=== PATIENT | male | born 1975 | race Caucasian/White ===

== ENCOUNTER 2016-07-24 12:37 | Emergency (ER) | payer SELFPAY ==
[2016-07-24] MEDS ORDERED: chlordiazePOXIDE 25 MG CAP PO ONE ×2 (13:34→19:47)
--- NOTE | 2016-07-24 13:38 | EDPHY ---
H & P Stated Complaint: VERNON DOSS,From [place]-3 days-homeless Source: Patient Exam Limitations: No limitations - Personal History Current Tetanus/Diphtheria Vaccine: No Current Tetanus Diphtheria and Acellular Pertussis (TDAP): No - Medical/Surgical History Hx Asthma: No Hx Chronic Respiratory Disease: Yes Hx Diabetes: No Hx Cardiac Disease: No Hx Renal Disease: No Hx Cirrhosis: No Hx Alcoholism: Yes Hx HIV/AIDS: No Hx Splenectomy or Spleen Trauma: No Other PMH: ETOH, SZ disorder, LSD use, choleycystectomy, Bipolar, PTSD, schizoaffective, COPD. - Family History Significant Family History: No pertinent family hx - Social History Smoking Status: Heavy smoker Alcohol Use: Sober Drug Use: None Time Seen by Provider: 07/24/16 13:27 HPI/ROS: CHIEF COMPLAINT: Depression, suicidality HISTORY OF PRESENT ILLNESS: The patient is a 40-year-old man recently moved to [place] with a history of schizoaffective disorder and PTSD as well as polysubstance abuse and a seizure disorder. He states that he last drank this morning. He is worried about withdrawals. He has not yet experiencing any symptoms. He states that it has been 3 days since he took his Keppra because he cannot keep it down. He presented [facility] the [facility] who referred him here. He is admitting to suicidal ideations. He states that he has 3 times but been resuscitated. All 3 times in the past for overdoses. He denies any attempted overdose today. He states that he did take "whatever was in the medicine cabinet" last night in an attempt to hurt himself. This was not his medicine cabinet. REVIEW OF SYSTEMS: Constitutional: denies: chills, fever, recent illness, recent injury EENTM: denies: blurred vision, double vision, nose congestion Respiratory: denies: cough, shortness of breath Cardiac: denies: chest pain, irregular heart rate, lightheadedness, palpitations Gastrointestinal/Abdominal: denies: abdominal pain, diarrhea, nausea, vomiting, blood streaked stools Genitourinary: denies: dysuria, frequency, hematuria, pain Musculoskeletal: denies: joint pain, muscle pain Skin: denies: lesions, rash, jaundice, bruising Neurological: denies: headache, numbness, paresthesia, tingling, dizziness, weakness Hematologic/Lymphatic: denies: blood clots, easy bleeding, easy bruising Immunologic/allergic: denies: HIV/AIDS, transplant EXAM: GENERAL: Well-appearing, well-nourished and in no acute distress. HEAD: Atraumatic, normocephalic. EYES: Pupils equal round and reactive to light, extraocular movements intact, sclera anicteric, conjunctiva are normal. ENT: TMs normal, nares patent, oropharynx clear without exudates. Moist mucous membranes. NECK: Normal range of motion, supple without lymphadenopathy or JVD. LUNGS: Breath sounds clear to auscultation bilaterally and equal. No wheezes rales or rhonchi. HEART: Regular rate and rhythm without murmurs, rubs or gallops. ABDOMEN: Soft, nontender, normoactive bowel sounds. No guarding, no rebound. No masses appreciated. BACK: No CVA tenderness, no spinal tenderness, step-offs or deformities EXTREMITIES: Normal range of motion, no pitting or edema. No clubbing or cyanosis. NEUROLOGICAL: Cranial nerves II through XII grossly intact. Normal speech, normal gait. 5/5 strength, normal movement in all extremities, normal sensation PSYCH: Answers questions appropriately, calm, no tremors, organized thought SKIN: Warm, dry, normal turgor, no visible rashes or lesions. (Fish Enciso) Constitutional: Initial Vital Signs Temperature (C) 36.5 C 07/24/16 13:03 Heart Rate 98 07/24/16 13:03 Respiratory Rate 16 07/24/16 13:03 Blood Pressure 105/67 07/24/16 13:03 O2 Sat (%) 92 07/24/16 13:03 O2 Delivery Mode Room Air Allergies/Adverse Reactions: morphine Allergy (Intermediate, Verified 07/24/16 13:08) Rash Home Medications: Medication Instructions Recorded Keppra 07/24/16 Medical Decision Making ED Course/Re-evaluation: 2099 care assumed by me from Dr. Enciso pending mental health evaluation. [address] Miller pending the mental health evaluation. No issues during my care of this patient. (Ronan Adams) 230: I was asked to go and see this patient for nausea. He also tells me he is anxious. Patient tells me takes Keppra and has not been taking for 3 days requesting a dose of Keppra also requesting Zofran for nausea and Ativan for anxiety. I will give him 1 dose of Keppra here, Zofran and Ativan. He is on M1 hold. He is here for suicidal ideation. Received Librium earlier. (Blake Miller) 8:50 a.m. the patient has been evaluated by mental Health and felt appropriate for outpatient therapy. Patient is offered cab ride to alcohol recovery Center. He is given a list of mental health resources. (Roldan Stearns) The patient is medically cleared and admitted placed on a M1 hold. 8:00 p.m. the patient states that he is having withdrawals and vomited in the bathroom. He has no tremors or tachycardia. He is a risk of will give him more Librium. 9:00 p.m. care transferred to Dr. Cary. Patient is medically cleared we are awaiting psychiatric evaluation. (Fish Enciso) Differential Diagnosis: 0700: No acute events overnight. Patient signed over to Dr. Stearns at 7am Shift Change. Plan is for re-evaluation in the morning. (Blake Miller) Partial list of the Differential diagnosis considered include but were not limited to; substance abuse, depression, suicidality, malingering, alcohol withdrawal and although unlikely based on the history and physical exam, I also considered homicidality, schizophrenia. (Fish Enciso) - Data Points Laboratory Results: Laboratory Results 07/24/16 13:32 07/24/16 13:32 Medications Given: Discontinued Medications Chlordiazepoxide HCl (Librium) 50 mg PO EDNOW ONE Stop: 07/24/16 13:35 Last Admin: 07/24/16 13:50 Dose: 50 mg Chlordiazepoxide HCl (Librium) 50 mg PO EDNOW ONE Stop: 07/24/16 19:48 Last Admin: 07/24/16 19:52 Dose: 50 mg Sodium Chloride (Ns) 1,000 mls @ 0 mls/hr IV ONCE ONE PRN Reason: Wide Open Stop: 07/24/16 13:52 Last Admin: 07/24/16 13:51 Dose: 1,000 mls Levetiracetam (Keppra) 500 mg PO EDNOW ONE Stop: 07/24/16 22:54 Last Admin: 07/24/16 23:09 Dose: 500 mg Lorazepam (Ativan) 0.5 mg PO EDNOW ONE Stop: 07/24/16 21:35 Last Admin: 07/24/16 21:41 Dose: 0.5 mg Lorazepam (Ativan) 1 mg PO EDNOW ONE Stop: 07/24/16 22:54 Last Admin: 07/24/16 23:09 Dose: 1 mg Ondansetron HCl (Zofran Odt) 4 mg PO EDNOW ONE Stop: 07/24/16 22:54 Last Admin: 07/24/16 23:09 Dose: 4 mg Departure - Departure Disposition: Home, Routine, Self-Care Clinical Impression: Alcoholism, Suicidal ideation Alcoholic intoxication Qualifiers: Complication of substance-induced condition: with unspecified complication Qualified Code(s): F10.129 - Alcohol abuse with intoxication, unspecified Condition: Fair Instructions: Alcohol Intoxication (ED) Additional Instructions: We recommend you seek alcohol counseling and therapy. Follow up with mental health services that we have provided for you. Return for further thoughts of harming yourself or others. Referrals: NONE *PRIMARY CARE P,. [Primary Care Provider] - As per Instructions [facility] [Outside] - 1-2 days without fail
[2016-07-24 13:45] LABS: % IMMATURE GRANULYOCYTES 0.2 % (0.0-1.1); ABSOLUTE IMMATURE GRANULOCYTES 0.01 10^3/uL (0.00-0.10); ADD DIFF? NO; ADD MORPH? NO; ADD SCAN? NO; ATYPICAL LYMPHOCYTE FLAG 0 (0-99); FRAGMENT RBC FLAG 0 (0-99); HEMATOCRIT 44.8 % (40.0-51.0); HEMOGLOBIN 16.1 g/dL (13.7-17.5); LEFT SHIFT FLG 0 (0-99); LIPEMIA HEMOLYSIS FLAG 90 (0-99); MEAN CELL HEMOGLOBIN 32.7 pg (27.9-34.1); MEAN CELL HEMOGLOBIN CONCENTR. 35.9 g/dL (32.4-36.7); MEAN CELL VOLUME 91.1 fL (81.5-99.8); MEAN PLATELET VOLUME 8.7 fL (8.7-11.7); PLATELET CLUMPS FLAG 0 (0-99); PLATELET COUNT 192 10^3/uL (150-400); RED BLOOD CELL COUNT 4.92 10^6/uL (4.40-6.38); RED CELL DISTRIBUTION WIDTH 13.1 % (11.5-15.2)
[2016-07-24] MEDS ORDERED: NS 1,000 ML IV ONE (13:51)
[2016-07-24 14:18] LABS: ANION GAP 16 mEq/L (8-16); CALCIUM 8.9 mg/dL (8.5-10.4); CARBON DIOXIDE 19 mEq/l (22-31); CHLORIDE 108 mEq/L (97-110); CREATININE 1.1 mg/dL (0.7-1.3); ETHANOL SERUM 218 mg/dL (0-10); GLOMERULAR FILTRATION RATE > 60; GLUCOSE 90 mg/dL (70-100); POTASSIUM 4.2 mEq/L (3.5-5.2); SODIUM 143 mEq/L (134-144)
[2016-07-24] MEDS ORDERED: LORazepam 0.5 MG TAB PO ONE (21:34)
[2016-07-24] MEDS ORDERED: ONDANSETRON DISINTEGRATING 4 MG TAB PO ONE (22:53)
[2016-07-24] MEDS ORDERED: levETIRAcetam 500 MG TAB PO ONE (22:53)
[2016-07-24] MEDS ORDERED: LORazepam 1 MG TAB PO ONE (22:53)
[2016-07-25 09:09] VITALS: BP 122/94; PULSE 69; RESP 18; TEMP 98.1; O2SAT 95
== END 2016-07-25 09:35 | disposition home or self-care (01) ==
DX: F10.129 Alcohol abuse with intoxication, unspecified (principal); R45.851 Suicidal ideations; F17.200 Nicotine dependence, unspecified, uncomplicated; J44.9 Chronic obstructive pulmonary disease, unspecified
CPT/HCPCS: 80305; G0480

== ENCOUNTER 2016-07-28 16:05 | Emergency (ER) | payer SELFPAY ==
--- NOTE | 2016-07-28 16:03 | EDPHY ---
H & P Constitutional: Initial Vital Signs Temperature (C) 37 C 07/28/16 16:05 Heart Rate 91 07/28/16 16:05 Respiratory Rate 16 07/28/16 16:05 Blood Pressure 118/89 H 07/28/16 16:05 O2 Sat (%) 95 07/28/16 16:05 O2 Delivery Mode Room Air Allergies/Adverse Reactions: morphine Allergy (Intermediate, Verified 07/28/16 16:26) Rash Home Medications: Medication Instructions Recorded Wander 07/24/16 Medical Decision Making ED Course/Re-evaluation: CHIEF COMPLAINT: Psychiatric evaluation HISTORY OF PRESENT ILLNESS: 40-year-old male who is a mental health outpatient. They put him on a hold because they stated that he feels like he cannot contract for his safety. He is somewhat intoxicated and states to me that he is not at all suicidal not homicidal and he only wants [facility]. I am trying to reconcile the story as we speak. REVIEW OF SYSTEMS: A 10 point review of systems was performed and is negative with the exception of the elements mentioned in the history of present illness. PHYSICAL EXAM: General Appearance: Alert, well hydrated, appropriate, and non-toxic appearing. Head: Atraumatic without scalp tenderness or obvious injury Eyes: Pupils equal, round, reactive to light and accommodation, EOMI, no trauma , no injection. Ears: Clear bilaterally, no perforation, normal landmarks Nose: Atraumatic, no rhinorrhea, clear. Throat: There is no erythema or exudates, no lesions, normal tonsils, mucus membranes moist. Neck: Supple, 2+ carotid upstroke, nontender, no lymphadenopathy. Respiratory: No retractions, no distress, no wheezes, and no accessory muscle use. Lungs are clear to auscultation bilaterally. Cardiovascular: Regular rate and rhythm, no murmurs, rubs, or gallops. Bilateral carotid, radial, dorsalis pedis, and posterior tibial pulses intact. Good capillary refill all extremities. Gastrointestinal: Abdomen is soft, nontender, non-distended, no masses, no rebound, no guarding, no peritoneal signs. Musculoskeletal: Normal active ROM of all extremities, atraumatic. Neurological: Alert, appropriate, and interactive. The patient has normal DTRs and non-focal cranial nerves, motor, sensory, and cerebellar exam. Skin: No rashes, good turgor, no nodules on palpation. Past medical history: Alcohol abuse and depression Past surgical history: Noncontributory Family history: Noncontributory Social history: Abuses alcohol and tobacco, denies drug abuse, unemployed, single DIFFERENTIAL DIAGNOSIS: The differential diagnosis for the patient's depression included but was not limited to functional and major depression, situational depression, medication side effect, drugs, and alcohol abuse. MEDICAL DECISION MAKING: Patient is in no acute distress and is hemodynamically stable. This patient states very clearly to me that he has no intent on suicidality. He seems to be making perfect sense to me and I do not deem him gravely disabled. He is however on a hold. I am trying to sort out his level of intoxication, but clinically he is quite sober able to walk on his own talking making perfect sense. He has denied suicidality to me, my nurse, and Angela the psychiatric melter clerk. I am dropping the 72 hour mental health hold sending this [facility] to the [facility]. He is starting a new job on Sunday and I would like to give him opportunity to sober up and get to his job. He will be discharged the [facility] now he is clearly not suicidal and not gravely disabled In retrospect as we looked more into the 72 hour hold turns out that was placed by someone who does not have lice unsure to place the hold and is therefore not a legal hold. - Data Points Medications Given: Discontinued Medications Chlordiazepoxide (Librium 25 Mg Prepack#6) 1 btl TAKEHOME EDNOW ONE Stop: 07/28/16 16:23 Last Admin: 07/28/16 16:37 Dose: 1 btl Departure - Departure Disposition: Home, Routine, Self-Care Clinical Impression: Alcoholism, Severe major depression Condition: Good Instructions: Depression (ED), Alcohol Intoxication (ED), Alcohol Dependence ( ED) Additional Instructions: Go to [facility] now Referrals: Patient,NotPresent [Unknown] - As per Instructions
[2016-07-28] MEDS ORDERED: CHLORDIAZEPOXIDE 25MG PREPK#6 BTL TAKEHOME ONE (16:22)
[2016-07-28 16:26] VITALS: RESP 16
[2016-07-28 17:12] VITALS: BP 116/76; PULSE 72; TEMP 98.2; O2SAT 96
== END 2016-07-28 17:14 | disposition home or self-care (01) ==
LOC: EDUNIT#
DX: F32.2 Major depressive disorder, single episode, severe without psychotic features (principal); F10.20 Alcohol dependence, uncomplicated; F17.200 Nicotine dependence, unspecified, uncomplicated

== ENCOUNTER 2016-08-28 13:37 | Emergency (ER) | payer MEDICAID ==
[2016-08-28 13:46] VITALS: TEMP 98.2
--- NOTE | 2016-08-28 14:23 | CPEKG ---
Heart Rate: 64 RR Interval: 938 P-R Interval: 188 QRSD Interval: 92 QT Interval: 388 QTC Interval: 401 P Colmar: 38 QRS Colmar: 50 T Wave Colmar: 41 EKG Severity - NORMAL ECG - EKG Impression: SINUS RHYTHM Electronically Signed By: Marci Alegria 28-Aug-2016 21:44:10
--- NOTE | 2016-08-28 14:56 | EDPHY ---
H & P Time Seen by Provider: 08/28/16 14:27 HPI/ROS: CHIEF COMPLAINT: Seizure HISTORY OF PRESENT ILLNESS: Patient is a 40-year-old male with a history of schizoaffective disorder and seizure disorder presents emergency department after having multiple seizures. Patient states that he is taking THC oral to control his seizures. He did take for the last day or 2. He now had 3 seizures today. He states that when he had a seizure he fell and struck his head. He has a mild headache. He has mild nausea but no vomiting. He describes diffuse muscle aches. Patient has no recent illnesses. No fevers or chills. No cough shortness of breath. REVIEW OF SYSTEMS: My complete review of systems is negative except as mentioned in the HPI. Past Medical/Surgical History: Includes schizoaffective disorder, seizure disorder, PTSD, ETOH abuse Smoking Status: Heavy smoker Physical Exam: Vitals noted GENERAL: No acute distress, alert. HEENT: Eyes normal to inspection, normal pharynx, no signs of dehydration. No visible signs of trauma. NECK: No thyromegaly, no lymphadenopathy, supple. No spinal tenderness. Nexus negative. RESPIRATORY: Clear to auscultation bilaterally, no rales, rhonchi or wheezing. CVS: Regular rate and rhythm, no rubs, murmurs, or gallops. ABDOMEN: Soft, mild epigastric tenderness palpation with no rebound or guarding , nondistended, no organomegaly. BACK: Normal to inspection, no CVA tenderness. No spinal tenderness SKIN: Normal color, no rash, warm, dry. No pallor. Multiple tattoos. EXTREMITIES: No pedal edema, no calf tenderness, no Homans sign or cords, no joint swelling. Pelvis stable. Full range of motion of all extremities. No visible signs of trauma. NEURO/PSYCH: Higher functions: Alert and Oriented x3. Normal speech and cognition. Normal mood and affect. Cranial nerves: Normal as tested. Cerebellar: Normal as tested. Good finger to nose, good [id number], normal gait. Peripheral exam: Normal motor exam. Normal sensation. Normal reflexes. Constitutional: Initial Vital Signs Temperature (C) 36.8 C 08/28/16 13:44 Heart Rate 74 08/28/16 13:44 Respiratory Rate 16 08/28/16 13:44 Blood Pressure 117/69 08/28/16 13:44 O2 Sat (%) 96 08/28/16 13:44 O2 Delivery Mode Room Air Allergies/Adverse Reactions: morphine Allergy (Intermediate, Verified 07/28/16 16:26) Rash Home Medications: Medication Instructions Recorded Wander 07/24/16 Medical Decision Making - Diagnostics Imaging Results: Imaging Impressions Head CT 08/28/16 15:15 Impression: Normal noncontrast CT of the brain. Results called to Dr. Marci Alegria at 3:55 PM at the time of the interpretation. ED Course/Re-evaluation: In the emergency department I discussed the plan with the patient and answered all his questions. He fell and struck his head CT head was ordered. Patient was given Zofran 4 mg IV. Patient was given Toradol 30 mg IV. EKG shows normal sinus rhythm, normal rate, normal axis, normal intervals. There are no ST or T-wave abnormalities. EKG is normal as interpreted by me. Head CT: No acute disease noted. I discussed the result with the patient. We are awaiting laboratory studies. They were delayed. I discussed this with the nursing staff. I reviewed the patient's laboratory studies. They are unremarkable. His alcohol is elevated to 230. 17 12: The patient wishes to be discharged. He requests line be removed. I discussed this with the charge nurse. I went to the patient's room. He had ripped out his IV. He was angry. He walked out of the emergency department. Differential Diagnosis: My differential includes but is not limited to seizure that - Data Points Laboratory Results: Laboratory Results 08/28/16 16:27 08/28/16 16:27 08/28/16 08/28/16 08/28/16 16:27 16:27 16:27 WBC 5.68 10^3/uL 10^3/uL (3.80-9.50) RBC 4.48 10^6/uL 10^6/uL (4.40-6.38) Hgb 15.0 g/dL g/dL (13.7-17.5) Hct 42.4 % % (40.0-51.0) MCV 94.6 fL fL (81.5-99.8) MCH 33.5 pg pg (27.9-34.1) MCHC 35.4 g/dL g/dL (32.4-36.7) RDW 12.8 % % (11.5-15.2) Plt Count 183 10^3/uL 10^3/uL (150-400) MPV 8.9 fL fL (8.7-11.7) Neut % (Auto) 46.8 % % (39.3-74.2) Lymph % (Auto) 44.5 % % (15.0-45.0) [place] % (Auto) 6.9 % % (4.5-13.0) Eos % (Auto) 1.1 % % (0.6-7.6) Baso % (Auto) 0.5 % % (0.3-1.7) Nucleat RBC Rel Count 0.0 % % (0.0-0.2) Absolute Neuts (auto) 2.66 10^3/uL 10^3/uL (1.70-6.50) Absolute Lymphs (auto) 2.53 10^3/uL 10^3/uL (1.00-3.00) Absolute Monos (auto) 0.39 10^3/uL 10^3/uL (0.30-0.80) Absolute Eos (auto) 0.06 10^3/uL 10^3/uL (0.03-0.40) Absolute Basos (auto) 0.03 10^3/uL 10^3/uL (0.02-0.10) Absolute Nucleated RBC 0.00 10^3/uL 10^3/uL (0-0.01) Immature Gran % 0.2 % % (0.0-1.1) Immature Gran # 0.01 10^3/uL 10^3/uL (0.00-0.10) PT 15.2 SEC H SEC (12.0-15.0) INR 1.20 H (0.83-1.16) APTT 28.6 SEC SEC (23.0-38.0) Sodium 145 mEq/L H mEq/L (134-144) Potassium 3.9 mEq/L mEq/L (3.5-5.2) Chloride 109 mEq/L mEq/L (97-110) Carbon Dioxide 27 mEq/l mEq/l (22-31) Anion Gap 9 mEq/L mEq/L (8-16) BUN 8 mg/dL mg/dL (7-23) Creatinine 1.0 mg/dL mg/dL (0.7-1.3) Estimated GFR > 60 Glucose 95 mg/dL mg/dL (70-100) Calcium 8.1 mg/dL L mg/dL (8.5-10.4) Ethyl Alcohol 230 mg/dL H mg/dL (0-10) Medications Given: Discontinued Medications Sodium Chloride (Ns) 1,000 mls @ 0 mls/hr IV ONCE ONE PRN Reason: Wide Open Stop: 08/28/16 15:16 Last Admin: 08/28/16 15:21 Dose: 1,000 mls Ketorolac Tromethamine (Toradol) 30 mg IVP EDNOW ONE Stop: 08/28/16 15:41 Last Admin: 08/28/16 15:40 Dose: 30 mg Ondansetron HCl (Zofran) 4 mg IVP EDNOW ONE Stop: 08/28/16 15:16 Last Admin: 08/28/16 15:21 Dose: 4 mg Departure - Departure Disposition: Home, Routine, Self-Care Clinical Impression: Seizure Headache Qualifiers: Headache type: unspecified Headache chronicity pattern: acute headache Intractability: not intractable Qualified Code(s): R51 - Headache Condition: Good Additional Instructions: Patient left without discharge instructions. Referrals: Patient,NotPresent [Primary Care Provider] - As per Instructions
[2016-08-28] MEDS ORDERED: NS 1,000 ML IV ONE (15:15)
[2016-08-28] MEDS ORDERED: ONDANSETRON 4 MG/2 ML VIAL IVP ONE (15:15)
[2016-08-28] MEDS ORDERED: KETOROLAC 30 MG/1 ML SDV ONE (15:29)
[2016-08-28] MEDS ORDERED: KETOROLAC 30 MG/1 ML SDV IVP ONE (15:40)
[2016-08-28 16:39] LABS: % IMMATURE GRANULYOCYTES 0.2 % (0.0-1.1); ABSOLUTE IMMATURE GRANULOCYTES 0.01 10^3/uL (0.00-0.10); ADD DIFF? NO; ADD MORPH? NO; ADD SCAN? NO; ATYPICAL LYMPHOCYTE FLAG 20 (0-99); FRAGMENT RBC FLAG 0 (0-99); HEMATOCRIT 42.4 % (40.0-51.0); LEFT SHIFT FLG 0 (0-99); LIPEMIA HEMOLYSIS FLAG 90 (0-99); MEAN CELL HEMOGLOBIN 33.5 pg (27.9-34.1); MEAN CELL HEMOGLOBIN CONCENTR. 35.4 g/dL (32.4-36.7); MEAN CELL VOLUME 94.6 fL (81.5-99.8); MEAN PLATELET VOLUME 8.9 fL (8.7-11.7); PLATELET CLUMPS FLAG 0 (0-99); PLATELET COUNT 183 10^3/uL (150-400); RED BLOOD CELL COUNT 4.48 10^6/uL (4.40-6.38); RED CELL DISTRIBUTION WIDTH 12.8 % (11.5-15.2)
[2016-08-28 16:45] LABS: APTT 28.6 SEC (23.0-38.0); INR 1.2 (0.83-1.16); PROTIME(PATIENT) 15.2 SEC (12.0-15.0)
[2016-08-28 16:52] VITALS: O2SAT 93
[2016-08-28 16:57] VITALS: BP 107/72; PULSE 81; RESP 16
[2016-08-28 16:58] LABS: ANION GAP 9 mEq/L (8-16); CALCIUM 8.1 mg/dL (8.5-10.4); CARBON DIOXIDE 27 mEq/l (22-31); CHLORIDE 109 mEq/L (97-110); ETHANOL SERUM 230 mg/dL (0-10); GLOMERULAR FILTRATION RATE > 60; GLUCOSE 95 mg/dL (70-100); POTASSIUM 3.9 mEq/L (3.5-5.2); SODIUM 145 mEq/L (134-144)
== END 2016-08-28 17:14 | disposition left against medical advice (07) ==
LOC: EDUNIT#
DX: G40.909 Epilepsy, unspecified, not intractable, without status epilepticus (principal); F17.200 Nicotine dependence, unspecified, uncomplicated
CPT/HCPCS: 96374; G0480; J1885; J2405

== ENCOUNTER 2016-08-30 18:57 | Emergency (ER) | payer MEDICAID ==
--- NOTE | 2016-08-30 19:29 | EDPHY ---
H & P Smoking Status: Heavy smoker Time Seen by Provider: 08/30/16 19:08 HPI/ROS: CHIEF COMPLAINT: Possible seizure, alcohol intoxication HISTORY OF PRESENT ILLNESS: 40-year-old male with a history of schizoaffective disorder and possible seizure disorder presents to the emergency department by ambulance after he was found down. Patient admits to drinking alcohol today. He does not think that he hit his head. He has no complaints. He denies chest pain or difficulty breathing. Denies abdominal pain. Denies vomiting or diarrhea. No fever. The patient has been seen 4 times in the last 3 weeks after having possible seizure versus pseudoseizures. REVIEW OF SYSTEMS: Constitutional: No fever, no chills. Eyes: No double or blurry vision. ENT: No sore throat. Respiratory: No cough, no shortness of breath. Cardiac: No chest pain. Gastrointestinal: No abdominal pain, vomiting or diarrhea. Genitourinary: No dysuria. Musculoskeletal: No neck or back pain. Skin: No rashes. Neurological: No headache. (Venus Beckford) Past Medical/Surgical History: Schizoaffective disorder, seizure disorder, alcoholism (Venus Beckford) Social History: From [place] (Venus Beckford) Physical Exam: General Appearance: Lethargic. He smells of alcohol. No visible signs of trauma to his head. Eyes: Pupils equal and round. Extraocular motions are all intact. ENT: Mouth: Mucous membranes moist. Respiratory: No wheezing, rhonchi, or rales, lungs are clear to auscultation. Cardiovascular: Regular rate and rhythm. Gastrointestinal: Abdomen is soft and nontender, no masses, no rebound or guarding, bowel sounds normal. Neurological: Uncooperative, cannot determine. Skin: Warm and dry, no rashes. Musculoskeletal: Nontender to palpate along the cervical, thoracic or lumbar spine. Neck is supple. Extremities: Full range of motion and no peripheral edema. Psychiatric: No agitation (Venus Beckford) Constitutional: Initial Vital Signs Heart Rate 70 08/30/16 19:08 Respiratory Rate 18 08/30/16 19:08 Blood Pressure 117/84 H 08/30/16 19:08 O2 Sat (%) 94 08/30/16 19:08 O2 Delivery Mode Room Air Allergies/Adverse Reactions: morphine Allergy (Mild, Verified 08/31/16 11:38) Rash Home Medications: Medication Instructions Recorded Keppra 07/24/16 levETIRAcetam [Keppra 500 mg (*)] 500 mg PO BID #14 tab 08/31/16 Medical Decision Making ED Course/Re-evaluation: 40-year-old male presents to the emergency department with altered mental status. He has no physical signs of trauma to his head. He just had a CT scan of his brain 2 days ago which was normal. Laboratory studies are within normal limits with the exception of his alcohol being 347. The patient is welcome at the [facility] and will be discharged there when he is able to ambulate unassisted. (Venus Beckford) I did not see this patient while he was in the emergency department. However his care was discussed with the PA while the patient was in the department. I agree with treatment plan and management (Roldan Stearns) Differential Diagnosis: Altered mental status including but not limited to hypoglycemia, infectious process, electrolyte abnormality, head injury and intoxicants. (Venus Beckford) - Data Points Laboratory Results: Laboratory Results 08/30/16 19:29 Medications Given: Discontinued Medications Chlordiazepoxide (Librium 25 Mg Prepack#6) 1 btl TAKEHOME EDNOW ONE Stop: 08/31/16 01:57 Last Admin: 08/31/16 03:12 Dose: Not Given Ondansetron HCl (Zofran Odt) 4 mg PO EDNOW ONE Stop: 08/31/16 02:07 Last Admin: 08/31/16 02:07 Dose: 4 mg Departure - Departure Disposition: Home, Routine, Self-Care Clinical Impression: Alcohol intoxication Qualifiers: Complication of substance-induced condition: uncomplicated Qualified Code(s): F10.120 - Alcohol abuse with intoxication, uncomplicated Condition: Good Instructions: Chlordiazepoxide/Clidinium (By mouth), Alcohol Intoxication (ED) , Abuse of Alcohol (ED) Additional Instructions: You should not drink alcohol in excess. Referrals: [facility] [Outside] - As per Instructions
[2016-08-30 21:15] LABS: ANION GAP 15 mEq/L (8-16); CALCIUM 8.4 mg/dL (8.5-10.4); CARBON DIOXIDE 23 mEq/l (22-31); CHLORIDE 108 mEq/L (97-110); CREATININE 1.1 mg/dL (0.7-1.3); GLOMERULAR FILTRATION RATE > 60; GLUCOSE 93 mg/dL (70-100); POTASSIUM 5.2 mEq/L (3.5-5.2); SODIUM 146 mEq/L (134-144); SPECIMEN HEMOLYSIS 126
[2016-08-30 21:28] LABS: ETHANOL SERUM 347 mg/dL (0-10)
[2016-08-30 22:14] VITALS: RESP 16
[2016-08-31] MEDS ORDERED: ONDANSETRON DISINTEGRATING 4 MG TAB ONE (02:03)
[2016-08-31] MEDS ORDERED: ONDANSETRON DISINTEGRATING 4 MG TAB PO ONE (02:06)
[2016-08-31] MEDS: CHLORDIAZEPOXIDE 25MG PREPK#6 BTL TAKEHOME ONE ×2 (02:09→03:12)
[2016-08-31 03:07] VITALS: BP 123/81; PULSE 88; TEMP 98.2; O2SAT 94
== END 2016-08-31 03:07 | disposition home or self-care (01) ==
LOC: EDUNIT#
DX: F10.120 Alcohol abuse with intoxication, uncomplicated (principal); F17.200 Nicotine dependence, unspecified, uncomplicated
CPT/HCPCS: G0480

== ENCOUNTER 2016-08-31 11:37 | Emergency (ER) | payer MEDICAID ==
--- NOTE | 2016-08-31 12:21 | EDPHY ---
H & P Time Seen by Provider: 08/31/16 12:16 HPI/ROS: CHIEF COMPLAINT: [facility] requesting medication HISTORY OF PRESENT ILLNESS: 40-year-old male history of seizure disorder, homelessness, alcoholism, seen in the emergency department last evening and sent to the [facility] for [facility], [facility] was that he may get a prescription for Librium and for his Keppra 500 mg twice dailyso that he may enter their detoxification program. He has no complaints of acute pain or discomfort. Denies suicidal homicidal ideation. Denies hallucination. PHYSICAL EXAM (Prior to examination, patient consented to physical exam, hands were washed and my usual and customary physical exam procedures followed) 1) GENERAL: Well-developed, well-nourished, alert and oriented. Appears to be in no acute distress. 2) HEAD: Normocephalic 3) HEENT: sclera anicteric 4) LUNGS: Breathing comfortably. [5) psychiatric: Answering questions appropriately. Smoking Status: Heavy smoker Constitutional: Initial Vital Signs Temperature (C) 36.4 C 08/31/16 11:39 Heart Rate 92 08/31/16 11:39 Respiratory Rate 18 08/31/16 11:39 Blood Pressure 141/94 H 08/31/16 11:39 O2 Sat (%) 94 08/31/16 11:39 O2 Delivery Mode Room Air Allergies/Adverse Reactions: morphine Allergy (Mild, Verified 08/31/16 11:38) Rash Home Medications: Medication Instructions Recorded ppra 07/24/16 levETIRAcetam [Keppra 500 mg (*)] 500 mg PO BID #14 tab 08/31/16 MDM/Departure - MDM Medications Given: Discontinued Medications Chlordiazepoxide (Librium 25 Mg Prepack#6) 1 btl TAKEHOME EDNOW ONE Stop: 08/31/16 13:09 Last Admin: 08/31/16 13:11 Dose: 1 btl Levetiracetam (Keppra) 500 mg PO EDNOW ONE Stop: 08/31/16 13:10 Last Admin: 08/31/16 13:17 Dose: 500 mg ED Course/Re-evaluation: He is not altered. Doubt delirium tremens. Doubt encephalopathy. He has been given a prepack of Librium and a 7 day supply of Keppra. [facility]ills. - Depart Disposition: Home, Routine, Self-Care Clinical Impression: History of seizure Alcohol withdrawal Qualifiers: Complication of substance-induced condition: uncomplicated Qualified Code(s): F10.230 - Alcohol dependence with withdrawal, uncomplicated Condition: Good Instructions: Alcohol Withdrawal (ED) Prescriptions: levETIRAcetam [Keppra 500 mg (*)] 500 mg PO BID #14 tab Referrals: [facility] [Outside] - 1 day without fail [facility],. [Clinic] - 2-3 days, call for appt.
[2016-08-31] MEDS ORDERED: CHLORDIAZEPOXIDE 25MG PREPK#6 BTL TAKEHOME ONE ×2 (12:58→13:08)
[2016-08-31] MEDS ORDERED: levETIRAcetam 500 MG TAB ONE ×2 (12:58→12:59)
[2016-08-31] MEDS ORDERED: levETIRAcetam 500 MG TAB PO ONE (13:09)
[2016-08-31 13:19] VITALS: BP 178/90; PULSE 101; RESP 19; TEMP 98.6; O2SAT 91
== END 2016-08-31 13:19 | disposition home or self-care (01) ==
DX: G40.909 Epilepsy, unspecified, not intractable, without status epilepticus (principal); F10.230 Alcohol dependence with withdrawal, uncomplicated; F17.200 Nicotine dependence, unspecified, uncomplicated

== ENCOUNTER 2016-09-04 00:01 | Emergency (ER) | payer MEDICAID ==
[2016-09-04 00:38] VITALS: RESP 16
[2016-09-04] MEDS ORDERED: levETIRAcetam 500 MG TAB PO ONE (00:46)
[2016-09-04] MEDS ORDERED: chlordiazePOXIDE 25 MG CAP PO ONE (00:46)
[2016-09-04] MEDS ORDERED: ONDANSETRON DISINTEGRATING 4 MG TAB PO ONE (00:46)
[2016-09-04 00:51] LABS: % IMMATURE GRANULYOCYTES 0.6 % (0.0-1.1); ABSOLUTE IMMATURE GRANULOCYTES 0.03 10^3/uL (0.00-0.10); ADD DIFF? NO; ADD MORPH? NO; ADD SCAN? NO; ATYPICAL LYMPHOCYTE FLAG 0 (0-99); FRAGMENT RBC FLAG 0 (0-99); HEMATOCRIT 45.9 % (40.0-51.0); HEMOGLOBIN 16.5 g/dL (13.7-17.5); LEFT SHIFT FLG 0 (0-99); LIPEMIA HEMOLYSIS FLAG 90 (0-99); MEAN CELL HEMOGLOBIN 33.1 pg (27.9-34.1); MEAN CELL HEMOGLOBIN CONCENTR. 35.9 g/dL (32.4-36.7); MEAN CELL VOLUME 92.2 fL (81.5-99.8); MEAN PLATELET VOLUME 9.4 fL (8.7-11.7); PLATELET CLUMPS FLAG 30 (0-99); PLATELET COUNT 165 10^3/uL (150-400); RED BLOOD CELL COUNT 4.98 10^6/uL (4.40-6.38); RED CELL DISTRIBUTION WIDTH 12.1 % (11.5-15.2)
[2016-09-04 00:55] LABS: ANION GAP 11 mEq/L (8-16); CALCIUM 8.5 mg/dL (8.5-10.4); CARBON DIOXIDE 26 mEq/l (22-31); CHLORIDE 104 mEq/L (97-110); CREATININE 0.9 mg/dL (0.7-1.3); GLOMERULAR FILTRATION RATE > 60; GLUCOSE 93 mg/dL (70-100); POTASSIUM 4.8 mEq/L (3.5-5.2); SODIUM 141 mEq/L (134-144)
[2016-09-04 01:11] LABS: ETHANOL SERUM 322 mg/dL (0-10)
--- NOTE | 2016-09-04 01:40 | EDPHY ---
H & P Stated Complaint: M1, SI Source: Patient, EMS - Personal History Current Tetanus/Diphtheria Vaccine: Unsure Current Tetanus Diphtheria and Acellular Pertussis (TDAP): Unsure - Medical/Surgical History Hx Asthma: No Hx Chronic Respiratory Disease: Yes Hx Diabetes: No Hx Cardiac Disease: No Hx Renal Disease: No Hx Cirrhosis: No Hx Alcoholism: Yes Hx HIV/AIDS: No Hx Splenectomy or Spleen Trauma: No Other PMH: ETOH, SZ disorder, LSD use, choleycystectomy, Bipolar, PTSD, schizoaffective, COPD. - Social History Smoking Status: Heavy smoker Time Seen by Provider: 09/04/16 00:30 HPI/ROS: HPI The patient presents with suicidal ideation, placed on an M1 hold by police [place]. Patient says he has a plan to jump in front of cars. He says he has been feeling suicidal for the last few days though he became worse today. Has been on a drinking binge, drinking heavily lately and he thinks this is what has caused his symptoms. He also has been using LSD and mushrooms, last use yesterday. He feels dismal about his current situation. He has had suicidal ideations before and was last hospitalized about 1 year ago. He is not on any psychiatric medications.. REVIEW OF SYSTEMS Constitutional: No fever, no chills. Eyes: No discharge. ENT: No sore throat. Cardiovascular: No chest pain, no palpitations. Respiratory: No cough, no shortness of breath. Gastrointestinal: No abdominal pain, no vomiting. Genitourinary: No hematuria. Musculoskeletal: No back pain. Skin: No rashes. Neurological: No headache. PMHx: Seizure disorder, supposed to be on Keppra though states he is not taking it; bipolar disorder, schizoaffective disorder, PTSD per old records Soc Hx: Alcohol abuse, drug use, homeless PHYSICAL General Appearance: Alert, no distress Eyes: Pupils equal and round no pallor or injection ENT, Mouth: Mucous membranes moist Respiratory: There are no retractions, lungs are clear to auscultation Cardiovascular: Regular rate and rhythm Gastrointestinal: Abdomen is soft and non-tender, no masses, bowel sounds normal Neurological: A&O, moves all extremities Skin: Warm and dry, no rashes Musculoskeletal: Neck is supple non tender Extremities: symmetrical, full range of motion Psychiatric: Patient is oriented X 3, there is no agitation (Riguzzi,Dayan) Constitutional: Initial Vital Signs Temperature (C) 36.6 C 09/04/16 00:02 Heart Rate 82 09/04/16 00:02 Respiratory Rate 16 09/04/16 00:02 Blood Pressure 132/81 H 09/04/16 00:02 O2 Sat (%) 97 09/04/16 00:02 O2 Delivery Mode Room Air Allergies/Adverse Reactions: morphine Allergy (Mild, Verified 09/04/16 00:13) Rash haloperidol [From Haldol] Allergy (Verified 09/05/16 22:28) Home Medications: Medication Instructions Recorded levETIRAcetam [Keppra 500 mg (*)] 500 mg PO BID #14 tab 08/31/16 Medical Decision Making ED Course/Re-evaluation: 4:15 a.m.- Patient has been stable throughout his time in the emergency room. He has not exhibited any overt signs of alcohol withdrawal. He is feeling well. Labs have returned and do show that he has an elevated alcohol level and urine toxicology is positive for benzodiazepines and marijuana. Once he is more sober , he will be suitable for mental health evaluation. We will have to monitor him for alcohol withdrawals. 7:00 a.m.- Patient continues to be stable. He is awaiting mental health evaluation pending his sobriety. He will be signed out to the oncoming provider Dr. Adams. ( Dayan Clarke) 0700 care assumed by me from Dr. Clarke pending sobriety and mental health evaluation. [address] Sheppard pending MH evaluation. (Ronan Adams) Differential Diagnosis: This is a 40-year-old man with psychiatric disease including bipolar disorder and schizoaffective, also heavy alcohol use and recent hallucinogen use, homelessness presents brought in by ambulance placed on an M1 hold for suicidal ideation with plan to jump into traffic. Here, he is intoxicated, continually suicidal, without any other complaints. He is requesting Librium because he feels he is experiencing some alcohol withdrawals, though is not tachycardic or tremulous. I will give this to him as well as his usual Keppra which she has not been taking. Differential diagnosis includes bipolar disorder with suicidal ideation alcohol intoxication, alcohol withdrawal, polysubstance abuse. (Dayan Clarke) Other Provider: I assumed care of the patient at 3:00 p.m. pending psychiatric evaluation and placement. Update at 5:30 p.m.: I am informed by the psychiatric parts cataloguer that they would like to admit the patient to a CSU. Placement currently pending. The patient will be turned over to Dr. Enciso at 11pm. (Jose Manuel Sheppard) Patient's care transferred to md at 11:00 p.m.. The patient has asked for medication to help him sleep. He has received multiple doses of Ativan. We will try Ambien. He has been medically cleared and we are awaiting psychiatric placement. Patient is slept overnight without significant incident. Care transferred at shift change to Dr. Oj Maya. (Fish Enciso) Care the patient is assumed at 7:[address] Enciso with placement pending. Signed out to Fausto at 1500 with placement still pending. (Oj Maya) I assumed care of this patient at 3:[address] Maya. At 3:30 p.m., I was notified that her [facility] we continued to be looking for placement at a CSU. Patient asked for Librium to treat his alcohol withdrawal as well as Zofran for nausea and Motrin for headache. This was given. Jovon from [facility] discussed the patient with me at 6:10 p.m.. Evidently the patient has been declined as an admission at a CSU secondary to the fact that when he presented his alcohol level was 322. At this time she is recommending inpatient treatment. Patient received Ativan at 7:30 p.m. secondary to anxiety. We continue to await placement. Patient was accepted by Dr. Campbell at [facility]. Transfer paperwork was signed by myself at 1025pm (Reina Lambert) - Data Points Laboratory Results: Laboratory Results 09/04/16 00:35 09/04/16 00:35 Medications Given: Discontinued Medications Acetaminophen (Tylenol) 1,000 mg PO EDNOW ONE Stop: 09/04/16 15:06 Last Admin: 09/04/16 15:07 Dose: 1,000 mg Chlordiazepoxide HCl (Librium) 25 mg PO EDNOW ONE Stop: 09/04/16 00:47 Last Admin: 09/04/16 00:57 Dose: 25 mg Chlordiazepoxide HCl (Librium) 25 mg PO EDNOW ONE Stop: 09/05/16 07:43 Last Admin: 09/05/16 07:48 Dose: 25 mg Chlordiazepoxide HCl (Librium) 25 mg PO EDNOW ONE Stop: 09/05/16 16:49 Last Admin: 09/05/16 17:17 Dose: 25 mg Chlordiazepoxide HCl (Librium) 25 mg PO EDNOW ONE Stop: 09/05/16 22:17 Last Admin: 09/05/16 22:17 Dose: 25 mg Ibuprofen (Motrin) 600 mg PO EDNOW ONE Stop: 09/05/16 16:50 Last Admin: 09/05/16 17:18 Dose: 600 mg Levetiracetam (Keppra) 500 mg PO EDNOW ONE Stop: 09/04/16 00:47 Last Admin: 09/04/16 00:57 Dose: 500 mg Levetiracetam (Keppra) 500 mg PO BID ARAMIS Stop: 03/03/17 17:26 Last Admin: 09/05/16 21:05 Dose: 500 mg Lorazepam (Ativan) 1 mg PO EDNOW ONE Stop: 09/04/16 12:38 Last Admin: 09/04/16 12:39 Dose: 1 mg Lorazepam (Ativan Injection) 1 mg IVP EDNOW ONE Stop: 09/04/16 13:04 Last Admin: 09/04/16 13:06 Dose: 1 mg Lorazepam (Ativan Injection) 1 mg IVP EDNOW ONE Stop: 09/04/16 15:06 Last Admin: 09/04/16 15:07 Dose: 1 mg Lorazepam (Ativan Injection) 1 mg IVP EDNOW ONE Stop: 09/04/16 17:27 Last Admin: 09/04/16 17:28 Dose: 1 mg Lorazepam (Ativan) 1 mg PO EDNOW ONE Stop: 09/04/16 20:00 Last Admin: 09/04/16 20:00 Dose: 1 mg Lorazepam (Ativan) 1 mg PO EDNOW ONE Stop: 09/04/16 21:59 Last Admin: 09/04/16 22:05 Dose: 1 mg Lorazepam (Ativan) 1 mg PO EDNOW ONE Stop: 09/05/16 19:36 Last Admin: 09/05/16 19:54 Dose: 1 mg Nicotine Polacrilex (Nicorette) 2 mg B ONCE ONE Stop: 09/04/16 22:03 Last Admin: 09/04/16 22:05 Dose: 2 mg Nicotine Polacrilex (Nicorette) 2 mg B PRN PRN PRN Reason: Nicotine Withdrawal Stop: 03/04/17 19:41 Last Admin: 09/05/16 19:45 Dose: 2 mg Ondansetron HCl (Zofran Odt) 4 mg PO EDNOW ONE Stop: 09/04/16 00:47 Last Admin: 09/04/16 00:57 Dose: 4 mg Ondansetron HCl (Zofran) 4 mg IVP EDNOW ONE Stop: 09/04/16 13:04 Last Admin: 09/04/16 13:06 Dose: 4 mg Ondansetron HCl (Zofran) 4 mg IVP EDNOW ONE Stop: 09/04/16 17:27 Last Admin: 09/04/16 17:28 Dose: 4 mg Ondansetron HCl (Zofran Odt) 4 mg PO EDNOW ONE Stop: 09/05/16 07:43 Last Admin: 09/05/16 07:48 Dose: 4 mg Ondansetron HCl (Zofran Odt) 4 mg PO EDNOW ONE Stop: 09/05/16 16:50 Last Admin: 09/05/16 17:18 Dose: 4 mg Zolpidem Tartrate (Ambien) 10 mg PO EDNOW ONE Stop: 09/05/16 00:16 Last Admin: 09/05/16 00:24 Dose: 10 mg Departure - Departure Disposition: Other Psych, Not [facility] Clinical Impression: Suicidal ideation Alcohol intoxication Qualifiers: Complication of substance-induced condition: uncomplicated Qualified Code(s): F10.120 - Alcohol abuse with intoxication, uncomplicated Condition: Good Referrals: NONE *PRIMARY CARE P,. [Primary Care Provider] - As per Instructions
[2016-09-04] MEDS ORDERED: LORazepam 1 MG TAB ONE ×2 (12:20→19:58)
[2016-09-04] MEDS ORDERED: LORazepam 1 MG TAB PO ONE ×3 (12:37→21:58)
[2016-09-04] MEDS ORDERED: ONDANSETRON 4 MG/2 ML VIAL ONE ×2 (12:53→17:19)
[2016-09-04] MEDS ORDERED: LORazepam 2 MG/ML INJ ONE ×2 (12:54→17:20)
[2016-09-04] MEDS ORDERED: ONDANSETRON 4 MG/2 ML VIAL IVP ONE ×2 (13:03→17:26)
[2016-09-04] MEDS ORDERED: LORazepam 2 MG/ML INJ IVP ONE ×3 (13:03→17:26)
[2016-09-04] MEDS ORDERED: ACETAMINOPHEN 500 MG TAB ONE (14:58)
[2016-09-04] MEDS ORDERED: ACETAMINOPHEN 500 MG TAB PO ONE (15:05)
[2016-09-04] MEDS ORDERED: levETIRAcetam 500 MG TAB ONE (17:19)
[2016-09-04] MEDS: levETIRAcetam 500 MG TAB PO SCH (17:28)
[2016-09-04] MEDS ORDERED: NICOTINE POLACRILEX 2 MG GUM B PRN (21:58)
[2016-09-04] MEDS ORDERED: NICOTINE POLACRILEX 2 MG GUM B ONE (22:02)
[2016-09-05] MEDS ORDERED: ZOLPIDEM TARTRATE 5 MG TAB PO ONE (00:15)
[2016-09-05] MEDS: levETIRAcetam 500 MG TAB PO SCH ×3 (02:24→21:05)
[2016-09-05] MEDS ORDERED: ONDANSETRON DISINTEGRATING 4 MG TAB PO ONE ×2 (07:42→16:49)
[2016-09-05] MEDS ORDERED: chlordiazePOXIDE 25 MG CAP PO ONE ×3 (07:42→22:16)
[2016-09-05] MEDS ORDERED: IBUPROFEN 600 MG TAB PO ONE (16:49)
[2016-09-05 17:22] VITALS: TEMP 97
[2016-09-05] MEDS ORDERED: LORazepam 1 MG TAB PO ONE (19:35)
[2016-09-05] MEDS ORDERED: NICOTINE POLACRILEX 2 MG GUM B PRN (19:42)
[2016-09-05] MEDS ORDERED: NICOTINE POLACRILEX 2 MG GUM B ONE (19:43)
[2016-09-05 22:10] VITALS: BP 115/81; PULSE 98; O2SAT 97
[2016-09-05] MEDS ORDERED: chlordiazePOXIDE 25 MG CAP ONE (22:13)
== END 2016-09-05 23:16 ==
DX: R45.851 Suicidal ideations (principal); F10.120 Alcohol abuse with intoxication, uncomplicated; J44.9 Chronic obstructive pulmonary disease, unspecified; F17.200 Nicotine dependence, unspecified, uncomplicated
CPT/HCPCS: 80305; 96374; G0480; J2060; J2405